=== PATIENT | male | born 1955 | race Caucasian/White ===

== ENCOUNTER 2016-10-02 17:24 | Inpatient (IN) | payer MEDICAID ==
[~2016-10-02] VITALS: Ht 172.7 cm; Wt 70.0 kg
[~2016-10-02 17:24] MED LIST: 1-ME1LIQ PO; B12-1CHW CHEW; CODE15 PO; HYDR-3533 PO; IRON325T2 PO; LISI-363 PO; LORTA5 PO; SULF-154 PO; ULTR50TA PO
[2016-10-02 17:31] VITALS: BP 149/79; PULSE 94; RESP 16; TEMP 98.8; O2SAT 98
[2016-10-02] MEDS ORDERED: AMLO10TA2 PO (17:46)
[2016-10-02] MEDS ORDERED: LISI-515 PO (17:46)
[2016-10-02] MEDS ORDERED: ALPR.5 PO (17:46)
[2016-10-02] MEDS ORDERED: HYDR-3534 PO (17:46)
[2016-10-02] MEDS ORDERED: VANCOMYCIN INJ 1,000 MG in SODIUM CHLOR 0.9% 250 ML INJ 250 ML IV ONE (18:45)
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
[2016-10-02 18:50] VITALS: BP 145/80; PULSE 71; RESP 14; O2SAT 97
[2016-10-02 18:59] LABS: CHLORIDE 110 MEQ/L (98-107); POTASSIUM 3.5 MEQ/L (3.5-5.1); SODIUM (NA) 146 MEQ/L (136-145)
[2016-10-02] MEDS: SODIUM CHLOR 0.9% 1000 ML INJ 1,000 ML IV SCH (19:01)
[2016-10-02 19:03] LABS: ANION GAP 8 MEQ/L (5-15); BICARBONATE 27.7 MEQ/L (21.0-32.0); BLOOD UREA NITROGEN 6 MG/DL (7-18)
[2016-10-02 19:05] LABS: APTT (PATIENT) 29.8 SEC (24.3-30.1); PROTHROMBIN TIME - PATIENT 11.4 SEC (9.8-11.6)
[2016-10-02 19:06] LABS: ALT (GPT) 9 U/L (12-78); AST (GOT) 9 U/L (15-37); GLOMERULAR FILTRATION RATE 61 ML/MIN (>89)
[2016-10-02 19:08] LABS: TOTAL BILIRUBIN ADULT 0.2 MG/DL (0.2-1.0)
[2016-10-02 19:09] LABS: ALKALINE PHOSPHATASE 103 U/L (45-117)
[2016-10-02 19:22] LABS: AUTOMATED NEUTROPHIL # 5.5 TH/MM3 (1.8-7.7); BASOPHIL % 0.5 % (0.0-2.0); EOSINOPHIL % 0.7 % (0.0-4.0); HEMATOCRIT 35.3 % (39.0-51.0); HEMO FLAGS DIFF FINAL; LYMPH % 10.8 % (9.0-44.0); LYMPHOCYTE # 0.7 TH/MM3 (1.0-4.8); MEAN CELL VOLUME 89.9 FL (80.0-100.0); MEAN CORPUSCULAR HEMOGLOBIN 30.3 PG (27.0-34.0); MEAN CORPUSCULAR HGB CONC 33.7 % (32.0-36.0); MONO % 7.8 % (0.0-8.0); NEUT % 80.2 % (16.0-70.0); PLATELET COUNT 283 TH/MM3 (150-450); RED BLOOD COUNT 3.92 MIL/MM3 (4.50-5.90); RED CELL DISTRIBUTION WIDTH 12.9 % (11.6-17.2); WHITE BLOOD COUNT 6.7 TH/MM3 (4.0-11.0)
[2016-10-02] MEDS ORDERED: MORPHINE SULFATE 4 MG/ML INJ IV PUSH ONE (20:00)
[2016-10-02] MEDS ORDERED: ONDANSETRON HCL 4 MG/2 ML VIAL IV PUSH ONE (20:00)
--- NOTE | 2016-10-02 20:00 | RADHPO ---
EXAM DATE/TIME: 10/02/2016 19:31 [facility] COMPARISON: CHEST SINGLE AP, July 06, 2012, 2:40. INDICATIONS : Shortness of breath. MEDICAL HISTORY : None. SURGICAL HISTORY : None. ENCOUNTER: Initial ACUITY: 1 day PAIN SCORE: 0/10 LOCATION: Bilateral chest FINDINGS: A single view of the chest demonstrates the lungs to be symmetrically aerated without evidence of mas s, infiltrate or effusion. The cardiomediastinal contours are unremarkable. Osseous structures are intact. CONCLUSION: No acute disease. Mansoor Berger MD on October 02, 2016 at 19:58 Board Certified Radiologist. This report was verified electronically.
--- NOTE | 2016-10-02 20:01 | RADHPO ---
EXAM DATE/TIME: 10/02/2016 19:26 [facility] COMPARISON: No previous studies available for comparison. INDICATIONS : Right ankle pain and redness, possible infection. Patient states the screw on lateral side of ankle p oked through the skin back in June. MEDICAL HISTORY : None. SURGICAL HISTORY : ORIF right ankle 20+ years ago. ENCOUNTER: Initial ACUITY: 3 months PAIN SCORE: 5/10 LOCATION: Right ankle. FINDINGS: Preodontoid postsurgical changes involving the distal fibula with lateral plate and screw fixation an d distal tibia at the level of the medial malleolus with a single screw identified. There are chronic degenerative changes at the ankle with joint space narrowing, sclerosis and osteophytosis. As noted previously the distalmost screw of the fibular fixation plate is backed out partially extending just beyond the skin. There is lucency surrounding the 2 distalmost screws consistent with loosening. CONCLUSION: Stable examination. The distalmost screw of the lateral fibular plate fixation hardware is noted just beyond the skin surface. Mansoor Berger MD on October 02, 2016 at 19:58 Board Certified Radiologist. This report was verified electronically.
--- NOTE | 2016-10-02 20:02 | RADHPO ---
EXAM DATE/TIME: 10/02/2016 19:29 [facility] COMPARISON: No previous studies available for comparison. INDICATIONS : Right ankle pain and redness, possible infection. Patient states the screw on lateral side of ankle p oked through the skin back in june. MEDICAL HISTORY : None. SURGICAL HISTORY : ORIF right ankle 20+ years ago. ENCOUNTER: Initial ACUITY: 3 months PAIN SCORE: 5/10 LOCATION: Right tibia/fibula. 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 As noted previously the distalmost screw of the fibular plate f ixation extends to the skin surface. No soft tissue emphysema or periostitis. CONCLUSION: Stable appearance of the ankle. Mansoor Berger MD on October 02, 2016 at 20:00 Board Certified Radiologist. This report was verified electronically.
--- NOTE | 2016-10-02 20:47 | PD ---
Physical Exam Date Seen by Provider: Oct 02, 2016 Time Seen by Provider: 19:10 Narrative Accepted in transfer of care from Dr. Soliman GENERAL: Well-developed well-nourished male in no acute distress no respiratory distress SKIN: Warm and dry. HEAD: Normocephalic. EYES: No scleral icterus. No injection or drainage. NECK: Supple, trachea midline. No JVD or lymphadenopathy. CARDIOVASCULAR: Regular rate and rhythm without murmurs, gallops, or rubs. RESPIRATORY: Breath sounds equal bilaterally. No accessory muscle use. GASTROINTESTINAL: Abdomen soft, non-tender, nondistended. MUSCULOSKELETAL: No cyanosis; right ankle lateral malleolus with erythema tenderness and exposed surgical screw with localized mild edema and mild induration and no fluctuance. Dorsalis pedis pulses 2+ to palpation. Bilateral upper extremities and left lower extremity exams are grossly normal range Data Data Last Documented VS Vital Signs Date Time Temp Pulse Resp B/P Pulse Ox O2 Delivery O2 Flow Rate FiO2 10/02/16 18:50 71 14 145/80 97 Room Air 10/02/16 17:31 98.8 Orders Electrocardiogram (10/02/16 18:36) Complete Blood Count With Diff (10/02/16 18:36) Comprehensive Metabolic Panel (10/02/16 18:36) Prothrombin Time / Inr (Pt) (10/02/16 18:36) Act Partial Throm Time (Ptt) (10/02/16 18:36) Blood Culture (10/02/16 18:36) Urinalysis - C+S If Indicated (10/02/16 18:36) Chest, Single Ap (10/02/16 18:36) Iv Access Insert/Monitor (10/02/16 18:36) Ecg Monitoring (10/02/16 18:36) Oximetry (10/02/16 18:36) Sodium Chlor 0.9% 1000 Ml Inj (Ns 1000 M (10/02/16 18:45) Vancomycin Inj (Vancomycin Inj) (10/02/16 18:45) Ankle, Complete ([id number]) (10/02/16 18:38) Tibia/Fibula (Ap/Lat) (10/02/16 18:38) Ondansetron Inj (Zofran Inj) (10/02/16 20:00) Morphine Inj (Morphine Inj) (10/02/16 20:00) Labs Laboratory Tests Test 10/02/16 18:40 White Blood Count 6.7 TH/MM3 Red Blood Count 3.92 MIL/MM3 Hemoglobin 11.9 GM/DL Hematocrit 35.3 % Mean Corpuscular Volume 89.9 FL Mean Corpuscular Hemoglobin 30.3 PG Mean Corpuscular Hemoglobin 33.7 % Concent Red Cell Distribution Width 12.9 % Platelet Count 283 TH/MM3 Mean Platelet Volume 8.3 FL Neutrophils (%) (Auto) 80.2 % Lymphocytes (%) (Auto) 10.8 % Monocytes (%) (Auto) 7.8 % Eosinophils (%) (Auto) 0.7 % Basophils (%) (Auto) 0.5 % Neutrophils # (Auto) 5.5 TH/MM3 Lymphocytes # (Auto) 0.7 TH/MM3 Monocytes # (Auto) 0.5 TH/MM3 Eosinophils # (Auto) 0.0 TH/MM3 Basophils # (Auto) 0.0 TH/MM3 CBC Comment DIFF FINAL Differential Comment Prothrombin Time 11.4 SEC Prothromb Time International 1.0 RATIO Ratio Activated Partial 29.8 SEC Thromboplast Time Sodium Level 146 MEQ/L Potassium Level 3.5 MEQ/L Chloride Level 110 MEQ/L Carbon Dioxide Level 27.7 MEQ/L Anion Gap 8 MEQ/L Blood Urea Nitrogen 6 MG/DL Creatinine 1.20 MG/DL Estimat Glomerular Filtration 61 ML/MIN Rate Random Glucose 122 MG/DL Calcium Level 8.6 MG/DL Total Bilirubin 0.2 MG/DL Aspartate Amino Transf 9 U/L (AST/SGOT) Alanine Aminotransferase 9 U/L (ALT/SGPT) Alkaline Phosphatase 103 U/L Total Protein 7.3 GM/DL Albumin 3.2 GM/DL [facility] Medical Record Reviewed: Yes Supervised Visit with [place]: No Interpretation(s) Laboratory Tests Test 10/02/16 18:40 White Blood Count 6.7 TH/MM3 Red Blood Count 3.92 MIL/MM3 Hemoglobin 11.9 GM/DL Hematocrit 35.3 % Mean Corpuscular Volume 89.9 FL Mean Corpuscular Hemoglobin 30.3 PG Mean Corpuscular Hemoglobin 33.7 % Concent Red Cell Distribution Width 12.9 % Platelet Count 283 TH/MM3 Mean Platelet Volume 8.3 FL Neutrophils (%) (Auto) 80.2 % Lymphocytes (%) (Auto) 10.8 % Monocytes (%) (Auto) 7.8 % Eosinophils (%) (Auto) 0.7 % Basophils (%) (Auto) 0.5 % Neutrophils # (Auto) 5.5 TH/MM3 Lymphocytes # (Auto) 0.7 TH/MM3 Monocytes # (Auto) 0.5 TH/MM3 Eosinophils # (Auto) 0.0 TH/MM3 Basophils # (Auto) 0.0 TH/MM3 CBC Comment DIFF FINAL Differential Comment Prothrombin Time 11.4 SEC Prothromb Time International 1.0 RATIO Ratio Activated Partial 29.8 SEC Thromboplast Time Sodium Level 146 MEQ/L Potassium Level 3.5 MEQ/L Chloride Level 110 MEQ/L Carbon Dioxide Level 27.7 MEQ/L Anion Gap 8 MEQ/L Blood Urea Nitrogen 6 MG/DL Creatinine 1.20 MG/DL Estimat Glomerular Filtration 61 ML/MIN Rate Random Glucose 122 MG/DL Calcium Level 8.6 MG/DL Total Bilirubin 0.2 MG/DL Aspartate Amino Transf 9 U/L (AST/SGOT) Alanine Aminotransferase 9 U/L (ALT/SGPT) Alkaline Phosphatase 103 U/L Total Protein 7.3 GM/DL Albumin 3.2 GM/DL Last Impressions Chest X-Ray 10/02/16 1836 Signed Impressions: Service Date/Time: Sunday, October 02, 2016 19:31 - CONCLUSION: No acute disease. Mansoor Berger MD Differential Diagnosis Please refer to Dr. Soliman's dictation Narrative Course Accepted in transfer of care from Dr. Soliman for pending imaging labs and patient disposition with plan for admission patient starting had blood cultures obtained and received first dose of IV vancomycin Imaging shows no evidence for marked bony erosion there is chronic arthritic changes and hardware in place since unchanged from study 06/2016 Physician Communication Physician Communication At 8:45 PM patient's case discussed with on-call orthopedist Dr. Elizondo request patient to be transferred to [facility] admit to medicine service nothing by mouth after midnight with plan for surgical removal of hardware in the a.m. Diagnosis Primary Impression: Cellulitis of right ankle Additional Impression: Internal fixation device (pin, judy, or screw) mechanical complication Qualified Code: T84.498D - Internal fixation device (pin, judy, or screw) mechanical complication, subsequent encounter Marita Stewart MD Oct 02, 2016 20:47
[2016-10-02 20:56] VITALS: BP 156/78; PULSE 76; RESP 18; TEMP 98.2; O2SAT 97
[2016-10-02 21:00] VITALS: O2SAT 97
[2016-10-02] MEDS ORDERED: SODIUM CHLORIDE 0.9% FLUSH 5 ML FLUSH FLUSH PRN (21:15)
[2016-10-02] MEDS ORDERED: SODIUM CHLORIDE 0.9% FLUSH 5 ML FLUSH IVF PRN (21:15)
[2016-10-02] MEDS ORDERED: NALOXONE HCL 0.4 MG/ML AMP IV PRN (21:15)
[2016-10-02] MEDS ORDERED: ONDANSETRON HCL 4 MG/2 ML VIAL IVP PRN (21:15)
[2016-10-02 22:41] LABS: BLOOD, URINE TRACE (NEG); GLUCOSE,URINE NEG (NEG); KETONE, URINE NEG (NEG); NITRITE,URINE NEG (NEG)
[2016-10-02 22:54] LABS: URINE COLOR YELLOW (YELLW/STRAW)
[2016-10-02 22:56] LABS: CALCIUM OXALATE CRYSTALS,URINE MOD /hpf; MUCUS URINE OCC /lpf (OCC)
[2016-10-02 22:57] LABS: COMMENT (UR) CULT NOT INDICATED; CULTURE IF INDICATED CULT NOT INDICATED; RBC, URINE 0-3 /hpf (0-3); SQUAMOUS EPITHELIAL CELL URINE 0-5 /hpf (0-5)
[2016-10-03] VITALS (9 sets, daily range): BP systolic 142–154; BP diastolic 80–98; PULSE 63–86; RESP 16–18; TEMP 96.4–98.1; O2SAT 92–98
[2016-10-03] MEDS: MORPHINE SULFATE 4 MG/ML INJ IV PUSH PRN ×7 (01:10→23:31)
[2016-10-03] MEDS: SODIUM CHLOR 0.9% 1000 ML INJ 1,000 ML IV SCH (04:40)
[2016-10-03] MEDS ORDERED: SODIUM CHLORIDE 0.9% FLUSH 5 ML FLUSH IVF SCH (09:00)
[2016-10-03] MEDS: SODIUM CHLORIDE 0.9% FLUSH 5 ML FLUSH FLUSH SCH ×2 (09:00→20:37)
[2016-10-03] MEDS ORDERED: amLODIPine BESYLATE 5 MG TAB PO ONE ×2 (09:38→09:45)
[2016-10-03] MEDS: ALPRAZolam 0.5 MG TAB PO SCH (09:41)
[2016-10-03] MEDS ORDERED: VANCOMYCIN INJ 1,000 MG in SODIUM CHLOR 0.9% 250 ML INJ 250 ML IV ONE (12:00)
[2016-10-03] MEDS ORDERED: ACETAMINOPHEN/HYDROcodone 325 MG/7.5 MG TAB PO PRN (12:00)
[2016-10-03] MEDS ORDERED: Vancomycin Consult Pharmacy 1 EA OTHER SCH (12:00)
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
[2016-10-03 12:13] LABS: AUTOMATED NEUTROPHIL # 4.3 TH/MM3 (1.8-7.7); BASOPHIL % 0.4 % (0.0-2.0); EOSINOPHIL # 0.1 TH/MM3 (0-0.4); EOSINOPHIL % 2.2 % (0.0-4.0); HEMATOCRIT 32.7 % (39.0-51.0); HEMO FLAGS DIFF FINAL; LYMPH % 14.6 % (9.0-44.0); LYMPHOCYTE # 0.8 TH/MM3 (1.0-4.8); MEAN CELL VOLUME 89.7 FL (80.0-100.0); MEAN CORPUSCULAR HEMOGLOBIN 29.4 PG (27.0-34.0); MEAN CORPUSCULAR HGB CONC 32.8 % (32.0-36.0); MONO % 9.9 % (0.0-8.0); NEUT % 72.9 % (16.0-70.0); PLATELET COUNT 281 TH/MM3 (150-450); RED BLOOD COUNT 3.64 MIL/MM3 (4.50-5.90); RED CELL DISTRIBUTION WIDTH 13.3 % (11.6-17.2); WHITE BLOOD COUNT 5.8 TH/MM3 (4.0-11.0)
[2016-10-03] MEDS: PIPERACIL-TAZO 4.5 GM PREMIX 100 ML IV SCH ×2 (14:00→23:27)
[2016-10-03] MEDS: LISINOPRIL 20 MG TAB PO SCH (20:37)
--- NOTE | 2016-10-03 22:38 | EKG ---
Date Performed: 10/02/2016 Time Performed: 18:42:02 PTAGE: 61 years EKG: Sinus arrhythmia Lateral T wave changes are nonspecific Borderline ECG PREVIOUS TRACING : 12/12/2010 17.03 Compared to prior tracing no significant change DOCTOR: Vik Joya Interpretating Date/Time 10/03/2016 22:35:25
[2016-10-04] VITALS: BP 158/96; PULSE 73; RESP 18; TEMP 98; O2SAT 97
[2016-10-04] MEDS: PIPERACIL-TAZO 4.5 GM PREMIX 100 ML IV SCH ×3 (05:41→23:08)
[2016-10-04] MEDS: VANCOMYCIN 1,000 MG/NS 250 ML IV SCH ×4 (05:41→07:30)
[2016-10-04] MEDS: MORPHINE SULFATE 4 MG/ML INJ IV PUSH PRN (06:02)
[2016-10-04 06:10] LABS: POTASSIUM 3.5 MEQ/L (3.5-5.1)
[2016-10-04 06:13] LABS: BICARBONATE 24.6 MEQ/L (21.0-32.0)
[2016-10-04] MEDS: LACTATED RINGER'S 1000 ML IV SCH (07:10)
[2016-10-04] MEDS ORDERED: SODIUM CHLORID 0.9% 500 ML IV SCH (08:15)
[2016-10-04] MEDS ORDERED: METOPROLOL TARTRATE 25 MG TAB PO PRN (08:15)
[2016-10-04] MEDS ORDERED: INSULIN HUMAN REGULAR 1,000 UNITS/10 ML VIAL SQ PRN (08:15)
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
[2016-10-04] MEDS ORDERED: VANCOMYCIN HCL 1000 MG VIAL ONE (11:14)
[2016-10-04] MEDS ORDERED: ceFAZolin 2 GM PREMIX 50 ML ONE (11:14)
[2016-10-04] MEDS ORDERED: GENTAMICIN SULFATE 80 MG/2 ML VIAL ONE (11:14)
[2016-10-04] MEDS ORDERED: SODIUM CHLOR 0.9% 250 ML INJ 250 ML ONE (11:15)
[2016-10-04] MEDS ORDERED: MIDAZOLAM HCL 2 MG/2 ML VIAL ONE (11:15)
[2016-10-04] MEDS ORDERED: FAMOTIDINE 20 MG/2 ML VIAL ONE (11:15)
[2016-10-04] MEDS ORDERED: SODIUM CHLORIDE 0.9% FLUSH 5 ML FLUSH IVF PRN (11:30)
[2016-10-04] MEDS ORDERED: Post-op Orders (for Pharmacy) MISC XX ONE (11:30)
--- NOTE | 2016-10-04 11:59 | PD.OP ---
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 Surgeon: Wyatt Ortega Veterinary Toxicologist(s): SEBASTIEN Shoemaker PA-C The surgical procedure was assisted by my physician assistant administrator. My P.A. presence was necessary throughout this case for the manipulation and positioning of the surgical extremity. My P.A. was assisting me throughout the duration of this procedure. The skill set of a physician assistant administrator was medically necessary to complete this procedure. During the surgical case the surgical rn was working at the back table and the physician assistant administrator was directly assisting me. Operation and Findings: Sebastián was seen and evaluated preoperatively. Patient has an infected right leg wound with exposed hardware. Informed consent was obtained and operative site was marked. He is brought to operating room. His given IV sedation and GETA. Timeout procedure was performed. He is already received antibiotics. Right leg was prepped with alcohol followed by Hibiclens and draped in the usual sterile fashion. Procedure began with removal of deep hardware. A 4 inch incision was made over the lateral distal fibula. Subcutaneous tissue dissected with Bovie. Scar tissue was incised around the plate sharply. The screws were identified. The screws were now loosened with a screwdriver. A drill was now used to remove the screws. The plate was now elevated and removed. This point attention was turned to debridement of the fibula. Skin subcutaneous tissue fascia and bone were sharply debrided with scalpel, rongeur , and curettes. Each of the drill holes was cleaned with a drill and curettes. At this point cultures were obtained. Curettes were used to debride tissue around the bone. This was obtained for cultures. There did appear to be infection of the fibula. After thorough debridement wound was thoroughly irrigated with pulsatile lavage. Wound was clean at this time. Wound was now closed with 3-0 PDS and 3-0 nylon. Soft dressings were applied. Patient was awakened and transferred to recovery in stable condition Wyatt Ortega MD Oct 04, 2016 11:58
[2016-10-04] MEDS ORDERED: PROPOFOL 200 MG/20 ML AMP IV ONE (12:00)
[2016-10-04] MEDS ORDERED: ONDANSETRON HCL 4 MG/2 ML VIAL IV PUSH ONE (12:00)
[2016-10-04] MEDS ORDERED: MORPHINE SULFATE 4 MG/ML INJ IV PUSH PRN (12:00)
[2016-10-04] MEDS ORDERED: KETOROLAC TROMETHAMINE 60 MG/2 ML (IM) VIAL IM ONE (12:00)
[2016-10-04] MEDS ORDERED: *morphine SULFATE 8 MG/ML PERIprocedure ONLY ONE ×3 (12:25→13:38)
[2016-10-04] MEDS ORDERED: DO NOT ADM ANY ANTICOAGULANT DRUGS XX PRN (12:30)
--- NOTE | 2016-10-04 13:21 | RADRPT ---
EXAM DATE/TIME: 10/04/2016 11:53 [facility] COMPARISON: TIBIA/FIBULA RIGHT (AP/LAT), October 02, 2016, 19:29. INDICATIONS : Right fibula hardware removal. MEDICAL HISTORY : None. SURGICAL HISTORY : ORIF right ankle 20+ years ago. ENCOUNTER: Subsequent ACUITY: 1 day PAIN SCORE: Non-responsive. LOCATION: Right distal fibula. FINDINGS: The hardware within the fibula has been removed. A screw remains within the distal tibia/medial malle olus. CONCLUSION: Status post removal of hardware from the right distal fibula there Kar Ballard MD on October 04, 2016 at 13:18 Board Certified Radiologist. This report was verified electronically.
[2016-10-04] MEDS: ALPRAZolam 0.5 MG TAB PO SCH (13:25)
[2016-10-04] MEDS: ACETAMINOPHEN/HYDROcodone 325 MG/7.5 MG TAB PO PRN ×3 (13:45→23:11)
[2016-10-04 15:40] VITALS: BP 123/67; PULSE 81; RESP 17; TEMP 96; O2SAT 92
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
[2016-10-04 20:00] VITALS: BP 115/57; PULSE 66; RESP 16; TEMP 96.6; O2SAT 94
[2016-10-04] MEDS: ceFAZolin 2 GM PREMIX 50 ML IV SCH (20:24)
[2016-10-04] MEDS: SODIUM CHLORIDE 0.9% FLUSH 5 ML FLUSH IVF SCH (20:25)
[2016-10-04] MEDS: LISINOPRIL 20 MG TAB PO SCH (20:25)
[2016-10-04 20:36] VITALS: O2SAT 94
[2016-10-05] VITALS (7 sets, daily range): BP systolic 111–185; BP diastolic 61–82; PULSE 57–75; RESP 14–17; TEMP 96.3–97.7; O2SAT 92–96
[2016-10-05] MEDS: ceFAZolin 2 GM PREMIX 50 ML IV SCH ×3 (05:04→19:50)
[2016-10-05] MEDS: PIPERACIL-TAZO 4.5 GM PREMIX 100 ML IV SCH ×3 (05:04→19:50)
[2016-10-05] MEDS: ACETAMINOPHEN/HYDROcodone 325 MG/7.5 MG TAB PO PRN ×4 (05:05→18:16)
--- NOTE | 2016-10-05 06:48 | PD.ORT.PN ---
Subjective Subjective Remarks Patient is postop day #1 status post right ankle removal of hardware with irrigation and debridement of fibula osteomyelitis. Patient is comfortable. No complaints Objective Vitals Vital Signs Date Time Temp Pulse Resp B/P Pulse Ox O2 Delivery O2 Flow Rate FiO2 10/05/16 06:05 16 10/05/16 04:00 97.5 71 16 125/61 92 10/05/16 00:00 96.3 57 16 111/63 94 10/04/16 20:36 94 21 10/04/16 20:00 96.6 66 16 115/57 94 10/04/16 15:40 96.0 81 17 123/67 92 10/04/16 15:00 97.7 63 14 122/66 94 Room Air 10/04/16 14:00 64 14 144/83 94 Room Air 10/04/16 13:00 68 14 157/83 95 Room Air 10/04/16 12:45 76 14 159/88 96 Room Air 10/04/16 12:30 87 14 147/82 96 Nasal Cannula 2 10/04/16 12:15 97.4 78 14 162/87 93 Nasal Cannula 2 10/04/16 07:10 98.1 64 20 150/79 95 I/O 10/04/16 10/04/16 10/04/16 10/05/16 10/05/16 10/05/16 07:00 15:00 23:00 07:00 15:00 23:00 Intake Total 215 ml 1090 ml 240 ml 540 ml Output Total 1140 ml Balance 215 ml -50 ml 240 ml 540 ml Intake Oral 240 ml 240 ml 240 ml IV Total 215 ml 250 ml 300 ml Other 600 ml Output Urine Total 1125 ml Estimated Blood Loss 15 ml # Voids 3 1 # Bowel Movements 0 0 Result Diagram: 10/03/16 1210 10/04/16 0500 Imaging Last 72 hours Impressions Tibia/Fibula X-Ray 10/02/161837 Signed Impressions: Service Date/Time: Sunday, October 02, 2016 19:29 - CONCLUSION: Stable appearance of the ankle. Mansoor Berger MD Ankle X-Ray 10/02/161837 Signed Impressions: Service Date/Time: Sunday, October 02, 2016 19:26 - CONCLUSION: Stable examination. The distalmost screw of the lateral fibular plate fixation hardware is noted just beyond the skin surface. Mansoor Berger MD Chest X-Ray 10/02/16 1836 Signed Impressions: Service Date/Time: Sunday, October 02, 2016 19:31 - CONCLUSION: No acute disease. Mansoor Berger MD Objective Remarks Right lower extremity: No pain with hip or knee range of motion. Clean dry dressing on right ankle. No drainage present. Good capillary refill in his toes. Patient has very limited ankle motion secondary to posttraumatic arthritis Assessment & Plan Assessment and Plan Postop day #1 status post irrigation and debridement right ankle with removal of hardware Infectious disease consult for IV antibiotics Weight-bear as tolerated Clear for discharge once antibiotics are arranged--will likely need 6 weeks antibiotics Wyatt Davis MD Oct 05, 2016 06:48
[2016-10-05] MEDS: LACTATED RINGER'S 1000 ML IV SCH (08:15)
[2016-10-05] MEDS: ALPRAZolam 0.5 MG TAB PO SCH (09:33)
[2016-10-05] MEDS: SODIUM CHLORIDE 0.9% FLUSH 5 ML FLUSH IVF SCH ×2 (09:34→19:51)
--- NOTE | 2016-10-05 14:32 | HHI.FF ---
Infusion Therapy Location of Infusion Therapy: Ambulatory Infusion Therapy Order Patient Information Patient Weight 70.3 kg Diagnosis: (1) Infected hardware in right lower extremity (2) Ankle osteomyelitis, right Coded Allergies: *MDRO Multi-Drug Resistant Organism (Verified Adverse Reaction, Unknown, MRSA, 10/08/16) MRSA (ankle wound) - 10/04/16 Administer Medication Daptomycin q 24 hours 450mg IV Stop Treatment: Nov 02, 2016 Additional Information Venous access: PICC Line, Other Additional Instructions [x] Peripheral flush and dressing changes per protocol [x] Implanted port and central transfer and line up worker: * Implanted port: 10 ml Normal Saline followed by 5 ml Heparin 100 units/ml Heparin flush after each use and monthly to maintain. [] May leave port accessed during therapy. [] May leave peripheral site accessed for duration of therapy. [x] If patient has SOB or respiratory distress, check oxygen saturation. If less than 90% or clinical signs of respiratory distress, administer oxygen at 2 L/min. via nasal cannula and notify physician. [x] Anaphylaxis/Reaction orders: * Stop infusion. * Keep IV line open with saline flush. * Notify physician. * Monitor vital signs every 15 minutes until symptoms resolve. * Check Oxygen saturation; Oxygen at 2 L/min. via nasal cannula if less than 90% or clinical signs of respiratory distress. * Administer diphenhydramine (Benadryl) 25 mg IV STAT, (unless patient has received as pre-med). May repeat once, if necessary. * Solu-Cortef 250 mg IVP over 30-60 seconds, use 100 mg vials for each dissolution. * Epinephrine (1mg/1 ml) 0.3 mg subcutaneously or IVP now with any signs of respiratory distress. * Check with physician for new additional pre-med orders if patient is re- challenged or re-treated. [x] May remove PICC line when treatment complete, after confirming with Physician. [x] If the patient is admitted to the hospital, the ED, or transferred via [facility] , complete transfer form including medication reconciliation order sheet. Laboratory Tests Weekly Labs: BMP, Serum CK Levels, Vancomycin Trough Walker Paz MD Oct 05, 2016 14:32
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
[2016-10-05] MEDS ORDERED: PHARMACY ORDERED LAB XX ONE (17:45)
[2016-10-05] MEDS: VANCOMYCIN 1,000 MG/NS 250 ML IV SCH ×2 (18:02)
[2016-10-05] MEDS: LISINOPRIL 20 MG TAB PO SCH (19:49)
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
[2016-10-05] MEDS: MORPHINE SULFATE 4 MG/ML INJ IV PUSH PRN (23:20)
[2016-10-06] VITALS (7 sets, daily range): BP systolic 133–178; BP diastolic 70–85; PULSE 61–86; RESP 16–18; TEMP 96.5–97.9; O2SAT 93–97
[2016-10-06] MEDS: ceFAZolin 2 GM PREMIX 50 ML IV SCH ×3 (04:43→21:18)
[2016-10-06] MEDS: ACETAMINOPHEN/HYDROcodone 325 MG/7.5 MG TAB PO PRN ×4 (04:47→21:18)
[2016-10-06] MEDS: LACTATED RINGER'S 1000 ML IV SCH (08:15)
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
[2016-10-06] MEDS ORDERED: hydrALAZINE HCL 25 MG TAB PO PRN (09:00)
--- NOTE | 2016-10-06 09:01 | HHI.FF ---
Face to Face Verification Diagnosis: (1) Infected hardware in right lower extremity (2) Ankle osteomyelitis, right Home Health Nursing Order: Signs/symptoms of disease process Medication education-adverse effect Wound care and dressing changes Nursing assessment with vital signs IV medication administration I have seen patient Sebastián Rose on 10/06/16. My clinical findings support the need for the requested home health care services because: Limited ability to care for self High risk of falls Infection w/ risk of complications I certify that my clinical findings support that this patient is homebound because: Post-op weakness Unsteady gait/balance Unsafe to leave home unassisted Unable to use public transportation Ernestina Cameron DO Oct 06, 2016 9:01 am
--- NOTE | 2016-10-06 09:24 | RADRPT ---
EXAM DATE/TIME: 10/06/2016 09:10 [place] COMPARISON: CHEST SINGLE AP, October 02, 2016, 19:31. INDICATIONS : PICC Line Placement. MEDICAL HISTORY : None. SURGICAL HISTORY : None. ENCOUNTER: Initial ACUITY: 1 day PAIN SCORE: 0/10 LOCATION: Bilateral chest FINDINGS: A single view of the chest demonstrates the lungs to be symmetrically aerated without evidence of mas s, infiltrate or effusion. The cardiomediastinal contours are unremarkable. Osseous structures are intact. CONCLUSION: Normal examination. Right-sided PICC line in good position with its tip overlying the SVC. Rip Mendoza MD on October 06, 2016 at 9:22 Board Certified Radiologist. This report was verified electronically.
[2016-10-06] MEDS: HEPARIN SODIUM - SQ 10,000 UNITS/ML VIAL SQ SCH ×2 (09:43→21:19)
[2016-10-06] MEDS: ALPRAZolam 0.5 MG TAB PO SCH (09:43)
[2016-10-06] MEDS: SODIUM CHLORIDE 0.9% FLUSH 5 ML FLUSH IVF SCH ×2 (09:44→21:17)
[2016-10-06] MEDS: VANCOMYCIN INJ 1,200 MG in SODIUM CHLOR 0.9% 250 ML INJ 250 ML IV SCH (12:44)
[2016-10-06] MEDS: LISINOPRIL 20 MG TAB PO SCH (21:18)
[2016-10-07] VITALS: BP 140/75; PULSE 70; RESP 18; TEMP 98.6; O2SAT 95
[2016-10-07] MEDS: ACETAMINOPHEN/HYDROcodone 325 MG/7.5 MG TAB PO PRN ×4 (02:27→21:09)
[2016-10-07] MEDS: VANCOMYCIN INJ 1,200 MG in SODIUM CHLOR 0.9% 250 ML INJ 250 ML IV SCH (05:03)
[2016-10-07] MEDS: ceFAZolin 2 GM PREMIX 50 ML IV SCH ×3 (05:03→21:09)
[2016-10-07] MEDS ORDERED: PHARMACY ORDERED LAB XX ONE (05:45)
[2016-10-07 08:00] VITALS: BP 175/90; PULSE 70; RESP 16; TEMP 95.2; O2SAT 94
[2016-10-07] MEDS: LACTATED RINGER'S 1000 ML IV SCH (08:15)
[2016-10-07] MEDS: HEPARIN SODIUM - SQ 10,000 UNITS/ML VIAL SQ SCH ×2 (08:28→21:08)
[2016-10-07] MEDS: ALPRAZolam 0.5 MG TAB PO SCH (08:29)
[2016-10-07] MEDS: SODIUM CHLORIDE 0.9% FLUSH 5 ML FLUSH IVF SCH ×2 (08:32→21:08)
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
[2016-10-07 12:00] VITALS: BP 152/78; PULSE 71; RESP 16; TEMP 95.4; O2SAT 94
[2016-10-07 16:00] VITALS: BP 150/81; PULSE 71; RESP 16; TEMP 96.9; O2SAT 94
[2016-10-07] MEDS: VANCOMYCIN 1,000 MG/NS 250 ML IV SCH ×2 (16:35)
[2016-10-07 19:07] VITALS: PULSE 69
[2016-10-07 20:00] VITALS: BP 150/82; PULSE 69; RESP 20; TEMP 97.6; O2SAT 95
[2016-10-07] MEDS: LISINOPRIL 20 MG TAB PO SCH (21:08)
[2016-10-08] VITALS: BP 156/78; PULSE 69; RESP 19; TEMP 97.8; O2SAT 96
[2016-10-08] MEDS: ACETAMINOPHEN/HYDROcodone 325 MG/7.5 MG TAB PO PRN ×6 (01:06→23:24)
[2016-10-08] MEDS: VANCOMYCIN 1,000 MG/NS 250 ML IV SCH ×2 (05:01)
[2016-10-08] MEDS: ceFAZolin 2 GM PREMIX 50 ML IV SCH (05:02)
[2016-10-08] MEDS: HEPARIN SODIUM - SQ 10,000 UNITS/ML VIAL SQ SCH ×2 (09:22→20:21)
[2016-10-08] MEDS: ALPRAZolam 0.5 MG TAB PO SCH (09:22)
[2016-10-08] MEDS: SODIUM CHLORIDE 0.9% FLUSH 5 ML FLUSH IVF SCH ×2 (09:26→20:21)
[2016-10-08 10:00] VITALS: BP 140/83; PULSE 76; RESP 16; TEMP 97.4; O2SAT 94
[2016-10-08 12:00] VITALS: BP 138/80; PULSE 76; RESP 17; TEMP 96.1; O2SAT 92
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
[2016-10-08] MEDS: DAPTOmycin INJ 450 MG in SODIUM CHLORIDE 0.9% INJ 100 ML IV SCH (13:30)
[2016-10-08 16:00] VITALS: BP 150/83; PULSE 70; RESP 17; TEMP 96.7; O2SAT 96
[2016-10-08] MEDS ORDERED: PHARMACY ORDERED LAB XX ONE (16:45)
[2016-10-08 20:19] VITALS: BP 159/78; PULSE 72; RESP 18; TEMP 96.2; O2SAT 98
[2016-10-08 20:21] VITALS: PULSE 84
[2016-10-08] MEDS: LISINOPRIL 20 MG TAB PO SCH (20:21)
[2016-10-09 00:10] VITALS: BP 158/83; PULSE 69; RESP 18; TEMP 96.8; O2SAT 97
[2016-10-09 04:03] VITALS: BP 130/81; PULSE 77; RESP 18; TEMP 97.2; O2SAT 97
[2016-10-09] MEDS: ACETAMINOPHEN/HYDROcodone 325 MG/7.5 MG TAB PO PRN ×2 (05:56→10:33)
[2016-10-09 08:00] VITALS: BP 136/71; PULSE 73; RESP 16; TEMP 97.2; O2SAT 96
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
[2016-10-09] MEDS ORDERED: HYDR-3534 PO (08:36)
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
[2016-10-09] MEDS: ALPRAZolam 0.5 MG TAB PO SCH (10:33)
[2016-10-09] MEDS: DAPTOmycin INJ 450 MG in SODIUM CHLORIDE 0.9% INJ 100 ML IV SCH (10:35)
[2016-10-09] MEDS: HEPARIN SODIUM - SQ 10,000 UNITS/ML VIAL SQ SCH (10:35)
[2016-10-09] MEDS: SODIUM CHLORIDE 0.9% FLUSH 5 ML FLUSH IVF SCH (10:36)
[2016-10-09 12:00] VITALS: BP 139/81; PULSE 70; RESP 16; TEMP 97.4; O2SAT 95
--- NOTE | 2016-10-09 15:46 | HHI.FF ---
Face to Face Verification Diagnosis: (1) Ankle osteomyelitis, right (2) HTN (hypertension) (3) Infected hardware in right lower extremity Home Health Nursing Order: Nursing assessment with vital signs IV medication administration I have seen patient Sebastián Rose on 10/09/16. My clinical findings support the need for the requested home health care services because: Infection w/ risk of complications Injectable med education/admin I certify that my clinical findings support that this patient is homebound because: Unsafe to leave home unassisted Unable to use public transportation Srinath Luke MD Oct 09, 2016 15:45
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
[2016-10-09 16:00] VITALS: BP 132/76; PULSE 84; RESP 17; TEMP 97.8; O2SAT 96
== END 2016-10-09 18:20 | disposition home health service (06) | DRG 493 ==
LOC: PHED 17:24 → PHEDA 21:19 → PHEDH 10-03 01:19 → PH3A 10-03 13:50 → HSDI 10-04 06:56 → N07A 10-04 15:41
PROVIDERS: ADMIT Family Medicine; ATTEND Family Medicine
PROC: 0QBJ0ZZ Excision of Right Fibula, Open Approach (ICD-10-PCS; 2016-10-04)
PROC: 0QPJ04Z Removal of Internal Fixation Device from Right Fibula, Open Approach (ICD-10-PCS; principal; 2016-10-04 11:20)
PROC: 02HV33Z Insertion of Infusion Device into Superior Vena Cava, Percutaneous Approach (ICD-10-PCS; 2016-10-07)
DX: T84.624A Infection and inflammatory reaction due to internal fixation device of right fibula, initial encounter (principal); L03.115 Cellulitis of right lower limb; N17.9 Acute kidney failure, unspecified; K50.90 Crohn's disease, unspecified, without complications; M86.9 Osteomyelitis, unspecified; I10 Essential (primary) hypertension; M12.571 Traumatic arthropathy, right ankle and foot; F17.290 Nicotine dependence, other tobacco product, uncomplicated; K21.9 Gastro-esophageal reflux disease without esophagitis; F41.9 Anxiety disorder, unspecified; F32.9 Major depressive disorder, single episode, unspecified; Y92.9 Unspecified place or not applicable; Y83.1 Surgical operation with implant of artificial internal device as the cause of abnormal reaction of the patient, or of later complication, without mention of misadventure at the time of the procedure; Z87.442 Personal history of urinary calculi; B95.62 Methicillin resistant Staphylococcus aureus infection as the cause of diseases classified elsewhere
CPT/HCPCS: 36569; 71010; 73590; 73610; 76000; 76937; 80048; 80053; 80202; 81001; 82565; 85025; 85610; 85730; 86403; 87015; 87040; 87070; 87102; 87116; 87147; 87176; 87186; 87205; 87206; 93005; 94150; 96365; 96366; 96375; J0690; J0878; J1580; J1642; J1644; J1885; J2250; J2270; J2405; J2543; J3010; J3370; J7030; J7050; J7120